=== PATIENT | female | born 1960 | race African-American/Black ===

== ENCOUNTER 2022-08-16 14:19 | Emergency (ER) | payer OTHER ==
[~2022-08-16] VITALS: Ht 154.9 cm; Wt 99.8 kg
--- NOTE | 2022-08-16 14:52 | NUR ---
DR STEWART IN TO SEE PATIENT FOR EVAL.
[2022-08-16] MEDS ORDERED: HYDROCODONE/APAP 5/325MG TABLET ONE (14:57)
[2022-08-16] MEDS ORDERED: HYDROCODONE/APAP 5/325MG TABLET PO ONE (15:00)
[2022-08-16] MEDS ORDERED: HYDR-4209 PO (16:21)
[2022-08-16 16:32] VITALS: BP 146/89
--- NOTE | 2022-08-16 16:32 | NUR ---
Patient discharged to home in stable condition. Written and verbal after care instructions given. Patient verbalizes understanding of instruction.
== END 2022-08-16 16:33 | disposition home or self-care (01) ==
LOC: ER 14:50
DX: M54.12 Radiculopathy, cervical region (principal); I10 Essential (primary) hypertension; E11.9 Type 2 diabetes mellitus without complications; Z79.899 Other long term (current) drug therapy
CPT/HCPCS: 72125-TC